=== PATIENT | female | born 1965 | race Caucasian/White ===

== ENCOUNTER 2019-04-06 08:22 | Emergency (ER) | payer MEDICAID, OTHER ==
[~2019-04-06] VITALS: Ht 170.2 cm; Wt 100.0 kg
[2019-04-06 09:54] VITALS: BP 132/86
== END 2019-04-06 10:09 | disposition home or self-care (01) ==
LOC: EMS 08:26
DX: M54.5 Low back pain (principal); M54.6 Pain in thoracic spine; F17.210 Nicotine dependence, cigarettes, uncomplicated
CPT/HCPCS: 93005

== ENCOUNTER 2024-02-02 04:33 | Emergency (ER) | payer OTHER ==
[~2024-02-02] VITALS: Ht 162.6 cm; Wt 95.0 kg
[2024-02-02 04:50] VITALS: TEMP 98
[2024-02-02 05:35] VITALS: BP 128/92; PULSE 92; RESP 18; O2SAT 100
== END 2024-02-02 05:41 | disposition home or self-care (01) ==
LOC: EMS 04:38
DX: K21.9 Gastro-esophageal reflux disease without esophagitis (principal); J06.9 Acute upper respiratory infection, unspecified; F17.210 Nicotine dependence, cigarettes, uncomplicated
CPT/HCPCS: 99282; Z7502